=== PATIENT | female | born 1985 | race Asian ===

== ENCOUNTER 2016-10-11 19:09 | Emergency (ER) | payer OTHER ==
[2016-10-11 19:22] VITALS: TEMP 96.8
--- NOTE | 2016-10-11 19:29 | UCPHY ---
H & P Patient Type: Established Chief Complaint Nursing Narrative: developed a headache in back of head approx 26 hours ago, which is now radiating up and getting worse. Headache is intermitant and shooting, was treated at PCP today with a IM injecion of 60mg toradol. denies vision issues, denies n/v HPI/ROS: HPI CHIEF COMPLAINT: Right-sided, posterior sharp stabbing headache HISTORY OF PRESENT ILLNESS: This patient very pleasant 31-year-old female, she denies any significant medical history or surgical history denies any significant headache history. She presents to urgent care with a headache that she describes as ice pack sharp stabbing since 3:00 p.m. yesterday. She denies any trauma. She describes headache as sharp stabbing dislocation on the right side of her posterior head initially was somewhat low at the base of the occiput and then throughout the past 24 hours it is moved upward it is nail at the top of the occiput parietal region. It is located 1 focal area does not radiate anywhere. She denies numbness or tingling, denies focal weakness, denies visual disturbance, denies nausea vomiting, she tells me that this comes in waves and is ED pattern. There is times where she has no pain at all and then approximately every 30 seconds to 60 seconds she develops this headache. It is sharp in nature very intense very brief in nature Lasting 5 seconds then resolves for 30 seconds to a minute and then comes back. Patient was seen by her primary care doctor today and given IM Toradol 60 mg. This did not really help her pain. She was told if it got worse to go to the urgent care or emergency room. When I asked her what her doctor thought this was she explained that was too hard for them to discern exactly will come headache and was. Here upon her arrival to the emergency room she appears well nontoxic she is having this intermittent stabbing pain in the right posterior occiput. It comes and goes. Denies any other symptoms her neurological exam is unremarkable. She does tell me years ago she had the same thing exactly happened to her behind her left ear however resolved on its own she did not seek medical attention Past Medical History: No significant medical history Past Surgical History: Denies significant surgical history Social History: Denies daily use of drugs alcohol tobacco products Family History: Noncontributory ROS REVIEW OF SYSTEMS: A comprehensive 10 point review of systems is otherwise negative aside from elements mentioned in the history of present illness. Exam Constitutional triage nursing summary reviewed, vital signs reviewed, awake/ alert. Eyes normal conjunctivae and sclera, EOMI, PERRLA. HENT normal inspection, atraumatic, moist mucus membranes, no epistaxis, neck supple/ no meningismus, no raccoon eyes. Respiratory clear to auscultation bilaterally, normal breath sounds, no respiratory distress, no wheezing. Cardiovascular rate normal, regular rhythm, no murmur, no edema, distal pulses normal. Gastrointestinal soft, non-tender, no rebound, no guarding, normal bowel sounds, no distension, no pulsatile mass. Genitourinary no CVA tenderness. Musculoskeletal no midline vertebral tenderness, full range of motion, no calf swelling, no tenderness of extremities, no meningismus, good pulses, neurovascularly intact. Skin pink, warm, & dry, no rash, skin atraumatic. Neurologic nontender to palpation on the scalp forehead, awake, alert and oriented x 3, AAOx3, moves all 4 extremities equally, motor intact, sensory intact, CN II-XII intact, normal cerebellar, normal vision, normal speech. Psychiatric normal mood/affect. Heme/Lymph/Immune no lymphadenopathy. Differential Diagnosis: includes but is not limited to in a particular order: Ice pack headache, neuro spasm, vascular spasm, nerve inflammation, scalp inflammation, scalp nerve inflammation, doubt intracranial tumor, doubt intracranial bleed, doubt artery dissection, migraine headache, cluster headache Medical Decision Making: this patient had an IV established be medicated with a migraine medication including and Decadron, Benadryl, IV Dilaudid 0.5 mg, Reglan for nausea, she received IV fluids 1 L normal saline, and patient had a CT scan of the head without contrast rule out significant intracranial abnormality. Re-evaluation: CT scan of the head without IV contrast The results of the study are negative for acute intracranial abnormality specifically no bleed, tumor or anything spleen sharp ice pick stabbing pain in the right posterior occiput localized in a focal region. The study was read by Dr. Levine. I viewed the images myself on the PACS system. 2058: re-evaluation at this time this patient is resting comfortably her neurological exam again is unremarkable there is no focal neuro deficit. She has no weakness, numbness or tingling, her headache has completely resolved is 0 /10 at this time. She feels much better after IV fluids and migraine medication. Her CT scan of her head has been reviewed is unremarkable for anything acute specifically no bleed, no tumor anything explain ice pick headaches in the right occiput region. This most likely nerve or vaso spasm. I do recommend she follows up with the primary care doctor I have also recommend she follows up with Neurology. I will give her prescription for ibuprofen 800 mg [place] 5 mg as well as prednisone for 4 days. She does understand she develops any worsening symptoms includes further headache, vomiting, fever, severe pain weakness numbness or tingling she needs return to the urgent care or emergency room. Source: Patient - Personal History LMP (Females 10-55): 22-28 Days Ago - Medical/Surgical History Hx Asthma: No Hx Chronic Respiratory Disease: No Hx Diabetes: No Hx Cardiac Disease: No Hx Renal Disease: No Hx Cirrhosis: No Hx Alcoholism: No Hx HIV/AIDS: No Hx Splenectomy or Spleen Trauma: No Other PMH: denies - Family History Significant Family History: No pertinent family hx - Social History Smoking Status: Former smoker Constitutional: Initial Vital Signs Temperature (C) 36.0 C 10/11/16 19:16 Heart Rate 90 10/11/16 19:16 Respiratory Rate 18 10/11/16 19:16 Blood Pressure 129/72 H 10/11/16 19:16 O2 Sat (%) 98 10/11/16 19:16 O2 Delivery Mode Nasal Cannula O2 (L/minute) 3 Allergies/Adverse Reactions: hydrocodone bitartrate [From Vicodin] Allergy (Verified 10/11/16 19:16) Rash Home Medications: Medication Instructions Recorded Hydrocodone/APAP 5/325 [[place] 1 - 2 tab PO Q4H PRN #10 tab 10/11/16 5/325] Ibuprofen [Motrin (*)] 800 mg PO Q6-8PRN #7 tab 10/11/16 predniSONE 60 mg PO DAILY #15 tab 10/11/16 Medical Decision Making - Data Points Medications Given: Discontinued Medications Dexamethasone (Decadron Injection) 10 mg IVP EDNOW ONE Stop: 10/11/16 19:36 Last Admin: 10/11/16 19:45 Dose: 10 mg Diphenhydramine HCl (Benadryl Injection) 25 mg IVP EDNOW ONE Stop: 10/11/16 19:36 Last Admin: 10/11/16 19:47 Dose: 25 mg Hydromorphone HCl (Dilaudid) 0.5 mg IVP EDNOW ONE Stop: 10/11/16 19:37 Last Admin: 10/11/16 19:49 Dose: 0.5 mg Sodium Chloride (Ns) 1,000 mls @ 0 mls/hr IV ONCE ONE PRN Reason: Wide Open Stop: 10/11/16 19:37 Last Admin: 10/11/16 19:42 Dose: 1,000 mls Metoclopramide HCl (Reglan Injection) 10 mg IVP EDNOW ONE Stop: 10/11/16 19:36 Last Admin: 10/11/16 19:51 Dose: 10 mg Departure - Departure Disposition: Home, Routine, Self-Care Clinical Impression: Headache Qualifiers: Headache type: unspecified Headache chronicity pattern: acute headache Intractability: not intractable Qualified Code(s): R51 - Headache Condition: Good Instructions: Acute Headache (ED) Additional Instructions: 1. Return emergency room if develops any worsening symptoms includes worsening headache, fever, vomiting. 2. You need to follow up with her primary care doctor. 3. I also referred to Neurology should call to make an appointment. 4. I prescribed ibuprofen 800 mg she takes this for the next 2-3 days also prednisone for the next 4 days also [place] if you have severe pain however if he have worsening pain fever vomiting return to the emergency room. Referrals: Nando Brenner MD [Primary Care Provider] - As per Instructions Dean Nguyen DO [Medical Doctor] - As per Instructions Prescriptions: Hydrocodone/APAP 5/325 [[place] 5/325] 1 - 2 tab PO Q4H PRN #10 tab PRN Reason: Pain, Moderate Ibuprofen [Motrin (*)] 800 mg PO Q6-8PRN #7 tab predniSONE 60 mg PO DAILY #15 tab - PQRS PQRS Measurement: n/a
[2016-10-11] MEDS ORDERED: DEXAMETHASONE 10 MG/ML VIAL IVP ONE (19:35)
[2016-10-11] MEDS ORDERED: METOCLOPRAMIDE 10 MG/2 ML VIAL IVP ONE (19:35)
[2016-10-11] MEDS ORDERED: HYDROmorphONE/DILAUDID 1 MG/ML SYR IVP ONE (19:36)
[2016-10-11] MEDS ORDERED: NS 1,000 ML IV ONE (19:36)
[2016-10-11 20:17] VITALS: RESP 16
[2016-10-11 22:01] VITALS: BP 111/68; PULSE 72; O2SAT 99
== END 2016-10-11 22:02 | disposition home or self-care (01) ==
LOC: CED 19:09
DX: R51 Headache (principal); Z72.0 Tobacco use
CPT/HCPCS: 70450-PO; 96361-PO; 96374-PO; 96375-PO; 99215-PO; G0463-PO; J1170; J1200; J2765